=== PATIENT | male | born 1945 | race Caucasian/White ===

== ENCOUNTER 2021-12-09 13:07 | Emergency (ER) | payer OTHER ==
[2021-12-09 15:23] LABS: Absolute Lymphocytes (CBC) 1.6 K/uL (0.7-4.9); Hematocrit 39.5 % (39.6-49.0); MCV 93.8 fL (80-100); MPV 8.3 fL (7.6-11.3); RBC Red Blood Cell Count 4.21 M/uL (4.33-5.43)
[2021-12-09 15:24] LABS: Protime INR 1.32
[2021-12-09 15:44] LABS: Magnesium 2.3 mg/dL (1.8-2.4); Potassium 3.9 mmol/L (3.5-5.1); Thyroid Stimulating Hormone 2.23 uIU/mL (0.360-3.740); Troponin High Sensitivity 12.3 pg/mL (<58.9)
--- NOTE | 2021-12-09 15:52 | RAD REPORT ---
EXAM DESCRIPTION: RAD - Chest Single View - 12/09/2021 3:38 pm CLINICAL HISTORY: PALPITATIONS COMPARISON: None TECHNIQUE: AP portable chest image was obtained 12/09/2021 3:38 pm . FINDINGS: Lung volumes are low. No peripheral mass or consolidation. Left hemidiaphragm elevation is present limiting left lung base assessment. Heart size is upper normal. No vascular engorgement. No measurable pleural effusion and no pneumothorax. No acute bony abnormality seen. No acute aortic find ings suspected. IMPRESSION: Limited portable study without acute cardiopulmonary finding.
--- NOTE | 2021-12-09 18:43 | RAD REPORT ---
EXAM DESCRIPTION: CT - Chest For Pe Angio - 12/09/2021 6:04 pm CLINICAL HISTORY: Chest pain COMPARISON: No comparisons TECHNIQUE: Dynamically enhanced 3 mm thick images of the chest were obtained during administration o f approximately 150mL Isovue 370 IV contrast. Coronal and oblique MIP reconstruction images were gene rated and reviewed. Exam utilizes a protocol to evaluate the pulmonary arterial tree. All CT scans are performed using dose optimization technique as appropriate and may include automated exposure control or mA/KV adjustment according to patient size. FINDINGS: No pulmonary emboli are identified. The aorta as imaged shows no acute or suspicious finding. No pericardial thickening or effusion. Chronic atelectasis is present adjacent to the elevated left hemidiaphragm. Scattered scarring change s are present. There is a 6 mm noncalcified pulmonary nodule in the inferior aspect of the right uppe r lobe near the minor fissure (image 42/99). No pleural effusion or pleural thickening. No mediastinal or hilar suspicious masses. No chest wall masses or abnormal axillary lymphadenopathy. A 6 centimeter homogeneous fluid attenuation mass in the posterior left upper quadrant is probably an exophytic left renal cyst. No comparison is available. IMPRESSION: No pulmonary emboli identified. A 6 mm noncalcified pulmonary nodule is present in the inferior aspect right upper lobe. No compariso n available to establish stability. Follow-up recommendation the pulmonary nodule would be a 6-[address] with additional 18-[address] obtained if the patient is high risk or considered if the patient is low risk for malignancy.
--- NOTE | 2021-12-09 19:01 | EDPHYS ---
Physician Documentation [facility] Name: Richard Osman Age: 76 yrs Sex: Male : 1945 Arrival Date: 12/09/2021 Time: 13:08 Bed 5 Private MD: ED Physician Franklin Blank HPI: 12/09 14:09 This 76 yrs old Male presents to ER via Ambulatory with complaints of AFIB. kb 14:09 The patient presents with a history of irregular heart beat. Context: The symptoms kb occur at rest. Onset: The symptoms/episode began/occurred 3 day(s) ago. Duration: The patient or guardian reports a single episode. Modifying factors: The symptoms are aggravated by nothing. The symptoms are alleviated by nothing. Associated signs and symptoms: Pertinent positives: SOB. Severity of symptoms: At their worst the symptoms were moderate in the emergency department the symptoms are unchanged. The patient has experienced similar episodes in the past. The patient has not recently seen a physician. Pt reports shortness of breath on exertion and intermittent palpitations for 3 days. States is feels like similar episodes of a.fib. Historical: - Allergies: 13:24 No Known Allergies; kb3 - Home Meds: 13:24 carvedilol 6.25 mg oral tab [Active]; Eliquis 2.5 mg oral tab 1 tab 2 times per day kb3 [Active]; atorvastatin 40 mg oral tab 1 tab once daily [Active]; - PMHx: 13:24 Atrial fibrillation; Hypertensive disorder; Hypercholesterolemia; prostate CA; kb3 - PSHx: 13:24 cardiac ablation; right lung wedge resection; kb3 - Immunization history:: Adult Immunizations up to date, Client reports having NOT received the Covid vaccine. Last tetanus immunization: up to date. - Social history:: Smoking status: Patient denies any tobacco usage or history of. ROS: 14:09 Constitutional: Negative for fever, chills, and weight loss. kb 14:09 Cardiovascular: Positive for palpitations, Negative for chest pain. 14:09 Respiratory: Positive for dyspnea on exertion. 14:09 All other systems are negative. Exam: 13:38 ECG was reviewed by the Attending Physician. kb 14:09 Constitutional: This is a well developed, well nourished patient who is awake, alert, kb and in no acute distress. Head/Face: Normocephalic, atraumatic. ENT: Moist Mucous membranes Respiratory: Respirations even and unlabored. No increased work of breathing. Talking in full sentences Abdomen/GI: Soft, non-tender. No distention Skin: Warm, dry with normal turgor. Normal color. MS/ Extremity: Pulses equal, no cyanosis. Neurovascular intact. Full, normal range of motion. Neuro: Awake and alert, GCS 15, oriented to person, place, time, and situation. Moves all extremities. Normal gait. Psych: Awake, alert, with orientation to person, place and time. Behavior, mood, and affect are within normal limits. 14:09 Cardiovascular: Rate: normal, Rhythm: irregularly irregular, Pulses: no pulse deficits are appreciated. Vital Signs: 13:19 BP 149 / 69; Pulse 66; Resp 20; Temp 97.9; Pulse Ox 96% ; Weight 117.93 kg; Height 5 kb3 ft. 10 in. (177.80 cm); 13:19 Pain 0/10; kb3 14:30 BP 117 / 53; Pulse 80; Resp 15; Pulse Ox 96% on R/A; tp1 15:30 BP 126 / 66; Pulse 68; Resp 21; Pulse Ox 98% on R/A; tp1 16:30 BP 150 / 78; Pulse 53; Resp 17; Pulse Ox 98% on R/A; tp1 17:30 BP 147 / 52; Pulse 51; Resp 17; Pulse Ox 98% on R/A; tp1 18:30 BP 147 / 82; Pulse 51; Resp 17; Pulse Ox 100% on R/A; tp1 13:19 Body Mass Index 37.31 (117.93 kg, 177.80 cm) kb3 MDM: 13:30 Patient medically screened. kb 14:10 Data reviewed: vital signs, nurses notes. Data interpreted: Pulse oximetry: on room air kb is 96 %. Interpretation: normal. 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 ED course: Discussed case with Dr Blank. Recommends CT PE and, if normal, outpatient follow up. 12/09 13:30 Order name: Basic Metabolic Panel; Complete Time: 15:46 kb 12/09 13:30 Order name: CBC with Diff; Complete Time: 15:25 kb 12/09 13:30 Order name: Magnesium; Complete Time: 15:46 kb 12/09 13:30 Order name: NT PRO-BNP; Complete Time: 15:46 kb 12/09 13:30 Order name: PT-INR; Complete Time: 15:25 kb 12/09 13:30 Order name: Troponin HS; Complete Time: 15:46 kb 12/09 13:30 Order name: XRAY Chest (1 view); Complete Time: 15:53 kb 12/09 13:30 Order name: EKG; Complete Time: 14:53 kb 12/09 13:30 Order name: Cardiac monitoring; Complete Time: 13:46 kb 12/09 13:30 Order name: EKG - Nurse/Tech; Complete Time: 13:46 kb 12/09 13:30 Order name: IV Saline Lock; Complete Time: 13:50 kb 12/09 13:30 Order name: Labs collected and sent; Complete Time: 13:50 kb 12/09 13:30 Order name: TSH; Complete Time: 15:46 kb 12/09 16:25 Order name: CT Chest For PE Angio; Complete Time: 18:53 eb 12/09 13:30 Order name: O2 Per Protocol; Complete Time: 13:37 kb 12/09 13:30 Order name: O2 Sat Monitoring; Complete Time: 13:37 kb EC:38 Rate is 67 beats/min. Rhythm is irregularly irregular. QRS [place] is Normal. QRS interval kb is normal at 78 msec. QT interval is normal at 433 msec. Administered Medications: No medications were administered Disposition Summary: 12/09/21 19:01 Discharge Ordered Location: Home kb Condition: Stable kb Diagnosis - Unspecified atrial fibrillation kb Followup: kb - With: Emergency Department - When: As needed - Reason: Worsening of condition Followup: kb - With: Private Physician - When: 2 - 3 days - Reason: Recheck today's complaints, Continuance of care, Re-evaluation by your physician Discharge Instructions: - Discharge Summary Sheet kb - Atrial Fibrillation, [id number] kb Forms: - Medication Reconciliation Form kb - Thank You Letter kb - Antibiotic Education kb - Prescription Opioid Use kb Addendum: 12/13/2021 04:11 Co-signature as Attending Physician, Franklin Blank MD I agree with the assessment and c mota plan of care. Signatures: Dispatcher [employer] EDMS Daphne Townsend, DIP GUIDER STOVES-C DIP GUIDER STOVES-Ckb Franklin Blank MD MD cha Bradberry, Kelly, RN RN kb3 Corrections: (The following items were deleted from the chart) 12/09 13:27 13:24 PSHx: prostate CA; kb3 kb3 18:01 16:46 ED course: Discussed case with Dr Blank. Recommends outpatient follow up.. kb kb
--- NOTE | 2021-12-09 19:01 | ER ---
Nurse's Notes [facility] Name: Richard Osman Age: 76 yrs Sex: Male : 1945 Arrival Date: 12/09/2021 Time: 13:08 Bed 5 Private MD: Diagnosis: Unspecified atrial fibrillation Presentation: 12/09 13:19 Chief complaint: Patient states: Pt reports mild SOB and intermittent palpitations x2 kb3 days with hx of afib. Pt has not missed any medications while here visiting. 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 PT recently had Holter monitor x14 days but does not have the results. Coronavirus screen: Vaccine status: Patient reports being unvaccinated. Client denies travel out of the [place] in the last 14 days. Ebola Screen: Patient negative for fever greater than or equal to 101.5 degrees Fahrenheit, and additional compatible Ebola Virus Disease symptoms Patient denies exposure to infectious person. Patient denies travel to an Ebola-affected area in the 21 days before illness onset. No symptoms or risks identified at this time. Initial Sepsis Screen: Does the patient meet any 2 criteria? No. Patient's initial sepsis screen is negative. Does the patient have a suspected source of infection? No. Patient's initial sepsis screen is negative. Risk Assessment: Do you want to hurt yourself or someone else? Patient reports no desire to harm self or others. Onset of symptoms was December 07, 2021. 13:19 Method Of Arrival: Ambulatory kb3 13:19 Acuity: CRISTOBAL 3 kb3 Triage Assessment: 13:24 General: Appears in no apparent distress. Behavior is calm, cooperative. Pain: Denies kb3 pain. Historical: - Allergies: 13:24 No Known Allergies; kb3 - Home Meds: 13:24 carvedilol 6.25 mg oral tab [Active]; Eliquis 2.5 mg oral tab 1 tab 2 times per day kb3 [Active]; atorvastatin 40 mg oral tab 1 tab once daily [Active]; - PMHx: 13:24 Atrial fibrillation; Hypertensive disorder; Hypercholesterolemia; prostate CA; kb3 - PSHx: 13:24 cardiac ablation; right lung wedge resection; kb3 - Immunization history:: Adult Immunizations up to date, Client reports having NOT received the Covid vaccine. Last tetanus immunization: up to date. - Social history:: Smoking status: Patient denies any tobacco usage or history of. Screenin:50 Abuse screen: Denies threats or abuse. Denies injuries from another. Nutritional tp1 screening: No deficits noted. Tuberculosis screening: No symptoms or risk factors identified. Fall Risk Fall in past 12 months (25 points). Secondary diagnosis (15 points) IV access (20 points). Ambulatory Aid- None/Bed Rest/Nurse Assist (0 pts). Gait- Normal/Bed Rest/Wheelchair (0 pts) Mental Status- Oriented to own ability (0 pts). Total Carcamo Fall Scale indicates No Risk (0-24 pts). Assessment: 13:40 General: Appears in no apparent distress. comfortable, Behavior is calm, cooperative, tp1 talking on phone . Neuro: Level of Consciousness is awake, alert, obeys commands, Oriented to person, place, time, situation. Cardiovascular: Capillary refill < 3 seconds in bilateral fingers Patient's skin is warm and dry. Rhythm is atrial fibrillation With PVC's. Respiratory: Airway is patent Respiratory effort is even, unlabored. Derm: Skin is pink, warm \T\ dry. Musculoskeletal: Swelling present in right leg and left leg. 13:49 Pain: Denies pain. Neuro: Reports dizziness. Cardiovascular: Reports palpitations. tp1 Respiratory: Reports shortness of breath. GI: Abdomen is round non-distended, Patient currently denies diarrhea, nausea, vomiting. : No signs and/or symptoms were reported regarding the genitourinary system. EENT: No signs and/or symptoms were reported regarding the EENT system. 14:55 Reassessment: Patient appears in no apparent distress at this time. No changes from tp1 previously documented assessment. Patient and/or family updated on plan of care and expected duration. Pain level reassessed. Patient is alert, oriented x 3, equal unlabored respirations, skin warm/dry/pink. Patient denies pain at this time. 15:50 Cardiovascular: Rhythm is atrial fibrillation. tp1 15:50 Reassessment: Patient appears in no apparent distress at this time. Patient and/or tp1 family updated on plan of care and expected duration. Pain level reassessed. Patient is alert, oriented x 3, equal unlabored respirations, skin warm/dry/pink. resting in bed watching TV Patient denies pain at this time. 17:00 Reassessment: Patient appears in no apparent distress at this time. No changes from tp1 previously documented assessment. Patient is alert, oriented x 3, equal unlabored respirations, skin warm/dry/pink. Patient denies pain at this time. 17:49 Reassessment: Pt transported to CT via stretcher. vg1 18:07 Reassessment: transported back from CT via stretcher. vg1 18:15 Reassessment: Patient appears in no apparent distress at this time. No changes from tp1 previously documented assessment. Patient is alert, oriented x 3, equal unlabored respirations, skin warm/dry/pink. Patient denies pain at this time. Vital Signs: 13:19 BP 149 / 69; Pulse 66; Resp 20; Temp 97.9; Pulse Ox 96% ; Weight 117.93 kg; Height 5 kb3 ft. 10 in. (177.80 cm); 13:19 Pain 0/10; kb3 14:30 BP 117 / 53; Pulse 80; Resp 15; Pulse Ox 96% on R/A; tp1 15:30 BP 126 / 66; Pulse 68; Resp 21; Pulse Ox 98% on R/A; tp1 16:30 BP 150 / 78; Pulse 53; Resp 17; Pulse Ox 98% on R/A; tp1 17:30 BP 147 / 52; Pulse 51; Resp 17; Pulse Ox 98% on R/A; tp1 18:30 BP 147 / 82; Pulse 51; Resp 17; Pulse Ox 100% on R/A; tp1 13:19 Body Mass Index 37.31 (117.93 kg, 177.80 cm) kb3 ED Course: 13:08 Patient arrived in ED. mr 13:24 Triage completed. kb3 13:24 Arm band placed on right wrist. kb3 13:25 Daphne Townsend FNP-C [facility]. kb 13:25 Franklin Blank MD is Attending Physician. kb 13:40 Patient has correct armband on for positive identification. Placed in gown. Bed in low tp1 position. Call light in reach. Client placed on continuous cardiac and pulse oximetry monitoring. NIBP monitoring applied. 13:40 EKG done. tp1 13:46 Narcisa Robert RN is Primary Nurse. tp1 13:49 Inserted saline lock: 20 gauge in right antecubital area, using aseptic technique. vg1 Blood collected. 15:39 XRAY Chest (1 view) In Process Unspecified. EDMS 18:06 CT Chest For PE Angio In Process Unspecified. EDMS Administered Medications: No medications were administered Medication: 19:13 VIS not applicable for this client. tp1 Outcome: 19:01 Discharge ordered by . kb 19:46 Patient left the ED. mm9 Signatures: Dispatcher [employer] EDMS Daphne Townsend, CARLOS QUINTERO-Lisa Gongora Victoria, RN RN vg1 Narcisa Robert RN RN tp1 Key Nazario, HUSSAIN RN kb3 Nighat Gomez mm9 Corrections: (The following items were deleted from the chart) 13:27 13:24 PSHx: prostate CA; kb3 kb3
[2021-12-09 20:21] VITALS: TEMP 97.9
[2021-12-09 20:31] VITALS: BP 147/82; O2SAT 100
--- NOTE | 2021-12-10 16:54 | EKG ---
Test Date: 2021-12-09 Test Time: 13:33:50 Assistant Professor Of Spanish: TP MEASUREMENT RESULTS: Intervals: Rate: 67 RI: QRSD: 78 QT: 410 QTc: 433 [place]: P: RI: QRS: -5 T: 54 INTERPRETIVE STATEMENTS: Atrial fibrillation with premature ventricular or aberrantly conducted complexes Low voltage QRS Nonspecific ST and T wave abnormality Abnormal ECG No previous ECG available for comparison Electronically Signed On 12-10-21 16:53:21 CDT by Danny Durham
== END 2021-12-09 19:46 | disposition home or self-care (01) ==
LOC: ER 13:07
DX: I48.91 Unspecified atrial fibrillation (principal); I10 Essential (primary) hypertension; E78.00 Pure hypercholesterolemia, unspecified; Z85.46 Personal history of malignant neoplasm of prostate
CPT/HCPCS: 93005; 85025; 80048; 36415; 83735; 85610; 84443; 84484; 83880; 71275; 71045; 99284; Q9967